=== PATIENT | female | born 2000 | race Two or more races ===

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

== ENCOUNTER → 2019-01-20 | Outpatient (CLI) | payer MEDICAID | LOC: BMCIMAGING 10:16 | PROVIDERS: ATTEND Physician Assistant | DX: N64.59 Other signs and symptoms in breast (principal) ==